=== PATIENT | female | born 1990 | race Caucasian/White ===

== ENCOUNTER 2025-02-26 19:50 | Emergency (ER) | payer MEDICARE, SELFPAY ==
[2025-02-26 19:52] VITALS: BP 155/99; PULSE 99; RESP 14; TEMP 36.4; O2SAT 98; BMI 64.5
--- NOTE | 2025-02-26 20:11 | EKG12_ITS ---
Test Reason : CP Blood Pressure : */* mmHG Vent. Rate : 90 BPM Atrial Rate : 90 BPM P-R Int : 108 ms QRS Dur : 94 ms QT Int : 358 ms P-R-T Axes : 66 61 57 degrees QTcB Int : 437 ms with sinus arrhythmia with short CA Otherwise normal ECG Confirmed by ARNOLD WOODY ([id number]), managing editor IVY RIZVI ([id number]) on 03/03/2025 6:28:24 AM Referred By: Confirmed By: ARNOLD WOODY
--- NOTE | 2025-02-26 20:12 | ED.VIS.CHEST ---
HPI History of Present Illness Chief Complaint: Chest Pain Narrative Narrative: Patient is a 44-year-old female presenting to the emergency department for left-sided chest pain and shortness of breath that started this morning. Patient has a past medical history of CHF and asthma. She is a current smoker. Patient states that the chest pain is left-sided and does not radiate anywhere else. Describes it as stabbing. She reports shortness of breath and wheezing as well that started around the same time. States that she used her albuterol which did not help. She endorses a dry cough. Denies any fever, chills, congestion, sore throat, diaphoresis. Denies nausea or vomiting. Denies any history of DVT or PE. Denies any new leg swelling. Denies any use of oral anticoagulation or hormone therapy. Denies any recent travel, hospitalizations or surgeries. [facility] Medical History Dependence on nocturnal oxygen therapy CHF (congestive heart failure) COPD (chronic obstructive pulmonary disease) Murmur Home Medications ?Medication ?Instructions ?Recorded ?Last Taken ?Type dexamethasone 6 mg tablet 6 mg PO DAILY 4 days #4 tabs 02/26/25 Unknown Rx Allergy/AdvReac Type Severity Reaction Status Date / Time Penicillins (PCN) Allergy Intermediate Swelling Verified 02/26/25 20:02 prednisone Allergy Intermediate Rash Verified 02/26/25 20:02 Social History Smoking Status: Current every day smoker tobacco type: cigarettes ROS ROS ED ROS Narrative see HPI EXAM Physical Exam Narrative Exam Narrative: Vital signs: Reviewed General: Alert and oriented x 3. No acute distress. BMI of 64.6. HEENT: Head is normocephalic and atraumatic, sinuses nontender, pupils equal round and reactive. Nares are patent. Oropharynx and throat exams normal. Neck: Supple without lymphadenopathy nontender Cardiovascular: Regular rate and rhythm, no murmurs. No rubs or gallops. Normal S1 and S2. Bilateral radial and DP/PT pulses are symmetric and 2+ throughout. Respiratory: Decreased breath sounds due to body habitus. End expiratory wheezing heard in all lung rivas. No rales or rhonchi heard. Abdominal: Soft and nontender. Normal bowel sounds. No guarding or rebound. Nonsurgical abdomen Extremities: No lower extremity edema. No tenderness. No bruising. Normal range of motion. Normal sensation. Skin: No rash or redness. The rest of the physical exam is unremarkable Const Vital Signs: 02/26/25 19:52 02/26/25 20:23 02/26/25 21:00 Temperature 97.6 F L Temperature Source Oral Pulse Rate 99 75 101 H Respiratory Rate 14 16 20 H Blood Pressure 155/99 H 125/66 H Blood Pressure Mean 117 85 Pulse Ox 98 99 Oxygen Delivery Method Room Air Room Air 02/26/25 22:00 02/26/25 23:00 Temperature 98 F Temperature Source Pulse Rate 94 96 Respiratory Rate 16 Blood Pressure 108/67 115/70 Blood Pressure Mean 80 85 Pulse Ox 100 Oxygen Delivery Method Room Air MDM MDM MDM Narrative Medical decision making narrative: Patient is a 34-year-old female presenting emergency department for chest pain and shortness of breath. Patient was seen and examined. Vitals are stable. Patient resting bed comfortably no acute distress. Differential includes but is not limited to: Asthma exacerbation, ACS, pneumonia, pneumothorax, viral illness, less likely PE or aortic pathology. PERC negative. No ripping or tearing chest pain. Pulses intact throughout. No significant tachycardia or hypertension noted be concerning for aortic pathology. With the patient's wheezing on exam I do think that her symptoms are because of asthma. Patient given 2 DuoNeb breathing treatments. Patient has an allergy to prednisone but states that she has tolerated other steroids in the past. She was given a dose of Decadron here. CBC with a mild nonspecific leukocytosis of 12.8 and normal hemoglobin. BMP with no significant abnormalities. BNP within normal limits. Troponin within normal limits. Viral swab negative. Chest x-ray reviewed by myself and there is evidence of mild vascular congestion. No discrete opacity concerning for pneumonia. No widened mediastinum. Radiology read with no focal consolidation. Mild pulmonary vascular congestion. 1.9 cm opacity within the left lower lobe may reflect a pulmonary nodule; consider CT for further evaluation. Patient was reevaluated. Resting in bed comfortably saturating 99% on room air. Lung sounds reevaluated, no wheezing noted. Patient states that she had little to no improvement after the breathing treatments. I did notify her of her negative lab and imaging findings. I did inform her of the incidental chest x-ray findings of the pulmonary nodule that she needs to follow-up on with primary care. Patient ambulates without difficulty. Patient states that she does have a albuterol inhaler at home and she will bring prescribed a short course of steroids for likely asthma exacerbation causing her symptoms. Patient discharged from the Emergency Department. I do not feel that the patient's evaluation reveals any acute reason for admission at this time. I instructed them to either follow-up with their primary care physician or promptly return to the Emergency Department for reevaluation should symptoms worsen or new symptoms develop. I explained what symptoms would indicate the need to return to the emergency department. Shared decision making was used. The patient voiced understanding of the treatment plan and is agreeable with it. Clinical impression: Dyspnea Chest pain Asthma exacerbation History & Record Review Discussion w/independent historian: Patient Lab Data Attestation: I reviewed the patient's lab results. Labs: Laboratory Results - last 24 hr 02/26/25 20:54 WBC 12.8 H RBC 5.22 Hgb 14.6 Hct 45.5 MCV 87.2 MCH 28.0 MCHC 32.1 RDW Std Deviation 44.0 H RDW Coeff of Sammy 13.8 Plt Count 359 MPV 9.8 Immature Gran % (Auto) 0.600 Neut % (Auto) 73.3 H Lymph % (Auto) 17.8 L Knott % (Auto) 7.3 Eos % (Auto) 0.7 Baso % (Auto) 0.3 Absolute Neuts (auto) 9.4 H Absolute Lymphs (auto) 2.28 Nucleated RBC % 0 Sodium 141 Potassium 3.4 Chloride 103 Carbon Dioxide 26.6 Anion Gap 11 BUN 12 Creatinine 0.67 L Estim Creat Clear Calc 175.75 Est GFR (MDRD) Non-Af 118 BUN/Creatinine Ratio 18.2 Glucose 123 H Calcium 9.9 Troponin T High Sens < 6 NT pro BNP II 186 Radiography Chest X-Ray - ED: 2 View, Read by ED Physician and - (vascular congestion) Diagnostic Testing: Clinical Impression(s) from Imaging Studies Chest X-Ray 02/26/25 21:02 IMPRESSION: No focal consolidation. Mild pulmonary vascular congestion. 1.9 cm opacity within the left lower lobe may reflect a pulmonary nodule; consider CT for further evaluation. Reading Location: [facility] Discharge Plan Triage Chief Complaint: Chest Pain ED Provider: Marisel Ramirez Dx/Rx/DC Orders Clinical Impression: Asthma exacerbation, Dyspnea, Chest pain Instructions: ED Chest Pain, Uncertain Cause, Asthma Prescriptions: New dexamethasone 6 mg tablet 6 mg PO DAILY 4 Days Qty: 4 0RF Primary Care Provider: Care Physician,No Primary Referrals: Trena Pinedo MD [Med Staff - Us Marketing Director, Internal Medicine] - As soon as possible [facility],Out of [Non-Staff, Medical] Activity Restrictions/Additional Instructions: Take the steroids daily for the next 4 days. Use your inhaler every 4-6 hours as needed for your symptoms. Your evaluation in the Emergency Department did not reveal any acute reason for admission. However, I want to emphasize that you may be early in the course of a disease process or illness even if it is not present. For this reason you should follow-up within 24 hours for reevaluation with either your primary care physician or if necessary back here in the Emergency Department. You should return to the Emergency Department immediately if your symptoms worsen or new symptoms develop. Your CT showed an incidental pulmonary nodule that you need to follow-up on in 6 to 12 months. Print Language: Nauruan Disposition Disposition: Home, Self Care Discharge Date/Time: 02/26/25 23:21
[2025-02-26 20:23] VITALS: PULSE 75; RESP 16
[2025-02-26 21:00] VITALS: BP 125/66; PULSE 101; RESP 20; O2SAT 99
--- NOTE | 2025-02-26 21:02 | RAD_ITS ---
PROCEDURE: CHEST PA AND LATERAL 02/26/2025 REASON FOR EXAM: WHEEZING, SOB, CP TECHNIQUE: Procedure Code: RADCXR Modality: DX Procedure: CHEST PA AND LATERAL COMPARISON: None FINDINGS: No focal consolidation. 1.9 cm opacity within the left lower thorax may reflect a pulmonary nodule. Mild pulmonary vascular congestion. No pleural effusion or pneumothorax. Cardiac silhouette is within normal limits. No acute fractures. RAD/Chest PA and Lateral IMPRESSION: No focal consolidation. Mild pulmonary vascular congestion. 1.9 cm opacity within the left lower lobe may reflect a pulmonary nodule; consi hebert CT for further evaluation. Reading Location: [id number]
[2025-02-26 21:23] LABS: Anion Gap 11 (5-15); BUN 12 mg/dL (4-19); BUN/Creat Ratio 18.2 RATIO (10-20); Calcium,Total 9.9 mg/dL (7.6-11.0); Carbon Dioxide 26.6 mmol/L (21.0-32.0); Chloride 103 mmol/L (98-108); Estimated Creatinine Clearance 175.75 ml/min (50-250); Glucose 123 mg/dL (70-99); Potassium 3.4 mmol/L (3.3-5.1); Pro- Brain NATRIURETIC PEPTIDE 186 pg/mL (<=450); Troponin T High Sensitivity < 6 ng/L (<=14)
[2025-02-26 21:28] LABS: Hematocrit 45.5 % (37-47); Hemoglobin 14.6 g/dL (12.0-15.0); Immature Granulocytes Count 0.080 X10^3/uL (0.0-0.0); Mean Corp Hgb Conc 32.1 g/dL (32-36); Mean Corpuscular Volume 87.2 fL (81-99); Mean Platelet Vol. 9.8 fl (6.2-12.0); NRBC Flagged by Analyzer 0 % (0-5); Platelet Count 359 K/mm3 (150-450); RBC Distribution Width CV 13.8 % (11.6-14.6); RBC Distribution Width SD 44.0 fl (35.1-43.9); Red Blood Count 5.22 M/mm3 (4.2-5.4); White Blood Count 12.8 K/mm3 (4.4-11.0)
--- NOTE | 2025-02-26 21:53 | PCA ---
NO OLD EKG
[2025-02-26 22:00] VITALS: BP 108/67; PULSE 94
--- NOTE | 2025-02-26 22:22 | CM.ED ---
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 SW entered patient's room, introducing self and role at [facility]. Patient stated further details of patient's situation: patient's car is at [facility] where EMS picked patient up, patient has been living in patient's car all day, patient's car does not have heat, patient has no money to get a taxi home due to not getting SSI today like patient expected. SW called [facility] (ph: [phone]) who stated not having beds available, but to try [facility]. SW called [facility] (ph: [phone]) and beds available for patient. Patient had reportedly already called earlier in the day and was on [facility]'s list of people to expect. offline cutter updated and offline cutter to call for taxi when patient is almost ready for discharge. Nicki Weinstein, LOAN EXPEDITOR, DEMOLITION CRANE OPERATOR
[2025-02-26 23:00] VITALS: BP 115/70; PULSE 96; RESP 16; TEMP 36.6; O2SAT 100
== END 2025-02-26 23:21 | disposition home or self-care (01) ==
PROVIDERS: Emergency Provider Student in an Organized Health Care Education/Training Program; Visit Provider Student in an Organized Health Care Education/Training Program
DX: J45.901 Unspecified asthma with (acute) exacerbation (principal); R07.9 Chest pain, unspecified; R09.89 Other specified symptoms and signs involving the circulatory and respiratory systems; F17.200 Nicotine dependence, unspecified, uncomplicated; Z99.81 Dependence on supplemental oxygen
CPT/HCPCS: 36415; 71046; 80048; 83880; 84484; 85025; 87631; 93005; 94640; 99285